=== PATIENT | male | born 2000 | race African-American/Black ===

== ENCOUNTER 2024-06-24 17:43 | Emergency (ER) | payer OTHER ==
[~2024-06-24] VITALS: Ht 180.3 cm; Wt 92.0 kg
[2024-06-24] MEDS: ACETAMINOPHEN 500 MG TABLET PO ONE (18:30)
[2024-06-24] MEDS: BACITRACIN 28 GM OINTMENT TP ONE (18:31)
[2024-06-24] MEDS: PERTUSS(ACELL),DIPH,TET/PF 0.5 ML SYRINGE [ADULT] IM. ONE (18:31)
[2024-06-24 21:24] VITALS: BP 129/78; PULSE 74; RESP 16; TEMP 97.3; O2SAT 99
== END 2024-06-24 21:34 | disposition home or self-care (01) ==
LOC: EMS 17:43
DX: S80.811A Abrasion, right lower leg, initial encounter (principal); W22.8XXA Striking against or struck by other objects, initial encounter; Y93.89 Activity, other specified; Y92.89 Other specified places as the place of occurrence of the external cause; Y99.8 Other external cause status
CPT/HCPCS: 73502; 90471; 90715; 99284

== ENCOUNTER 2025-02-14 19:55 | Emergency (ER) | payer OTHER ==
[~2025-02-14] VITALS: Ht 167.6 cm; Wt 72.7 kg
[2025-02-14 20:06] VITALS: BP 109/90; PULSE 79; RESP 16; TEMP 99; O2SAT 99
[2025-02-14] MEDS ORDERED: LIDO-57 TP (22:37)
[2025-02-14] MEDS: KETOROLAC TROMETHAMINE 30 MG/ML VIAL IM ONE (23:06)
[2025-02-14] MEDS: LIDOCAINE 5% TRANSDERMAL PATCH TD ONE (23:07)
== END 2025-02-14 23:30 | disposition home or self-care (01) ==
LOC: EMS 19:55
DX: M54.6 Pain in thoracic spine (principal); M79.18 Myalgia, other site
CPT/HCPCS: 99283; 71045; 96372; J1885